=== PATIENT | male | born 1990 | race African-American/Black ===

== ENCOUNTER 2025-01-10 21:37 | Emergency (ER) | payer MEDICAID ==
[~2025-01-10] VITALS: Ht 185.4 cm; Wt 132.2 kg
[2025-01-10 21:42] VITALS: O2SAT 97
[2025-01-10 21:47] VITALS: BP 140/77; PULSE 76; RESP 12; TEMP 37.1; O2SAT 97
[2025-01-10] MEDS: HYDROCODONE/ACETAMINOPHEN 5/325MG TABLET PO ONE (23:49)
[2025-01-10] MEDS: KETOROLAC 30MG/ML VIAL IM ONE (23:49)
[2025-01-11] MEDS ORDERED: IBUP-1455 MT (00:27)
[2025-01-11] MEDS ORDERED: CYCL10TA21 MT (00:27)
== END 2025-01-11 01:05 | disposition home or self-care (01) ==
LOC: ER 21:37
DX: G89.29 Other chronic pain (principal); M54.50 Low back pain, unspecified
CPT/HCPCS: 99283; 96372; J1885